=== PATIENT | female | born 1945 | race Caucasian/White ===

== ENCOUNTER 2017-06-29 15:17 | Inpatient (IN) | payer MEDICARE, OTHER ==
[~2017-06-29] VITALS: Ht 160 cm; Wt 68.0 kg
[2017-06-29] MEDS ORDERED: VALIUM PO (15:40)
[2017-06-29 16:10] LABS: BASOPHILS # (AUTO) 0.1 K/uL (0.0-8.0); BASOPHILS % (AUTO) 1.2 % (0.0-2.0); EOSINOPHILS # (AUTO) 0.3 K/uL (0.0-0.7); EOSINOPHILS % (AUTO) 3.1 % (0.0-7.0); HEMATOCRIT 27.7 % (37-47); HEMOGLOBIN 9.1 G/DL (12.0-16.0); LYMPHOCYTES # (AUTO) 1.6 K/UL (0.8-4.8); LYMPHOCYTES % (AUTO) 17.2 % (20.5-51.5); MEAN CORPUSCULAR HEMOGLOBIN 32.5 UUG (27.0-31.0); MEAN CORPUSCULAR HGB CONC 33 g/dL (32.0-37.0); MEAN CORPUSCULAR VOLUME 99.1 FL (81.0-99.0); MONOCYTES # (AUTO) 1.2 K/UL (0.1-1.30); MONOCYTES % (AUTO) 12.7 % (0.0-11.0); NEUTROPHILS # (AUTO) 6.2 K/UL (1.8-8.9); NEUTROPHILS % (AUTO) 65.8 % (38.5-71.5); PLATELET COUNT (AUTO) 564 K/UL (150-450); RED BLOOD CELL COUNT(AUTO) 2.79 MIL/UL (4.2-5.4); WHITE BLOOD COUNT (AUTO) 9.4 K/UL (4.0-11.2)
[2017-06-29 16:12] LABS: CARBON DIOXIDE 30 mmol/L (21-32); CHLORIDE 105 mmol/L (98-107); CREATININE 0.7 mg/dL (0.6-1.3); GLUCOSE 110 mg/dL (74-106); POTASSIUM 4.1 mmol/L (3.5-5.1); UREA NITROGEN, BLOOD 19 mg/dL (7-18)
--- NOTE | 2017-06-29 16:16 | NUR ---
PT IS IN ROOM #2B. DR HEARN EVALUATED THE PT.
[2017-06-29 16:18] LABS: ALANINE AMINOTRANSFERASE 18 U/L (14-59); ALKALINE PHOSPHATASE 120 U/L (50-136); ASPARTATE AMINOTRANSFERASE 13 U/L (15-37); BILIRUBIN,TOTAL 0.3 mg/dL (0.2-1.0); TOTAL PROTEIN, SERUM 6.6 g/dL (6.4-8.2)
[2017-06-29 16:25] LABS: ETHANOL < 3 MG/DL (0-0)
[2017-06-29 17:43] LABS: ACETAMINOPHEN < 2.0 ug/mL (10-30)
[2017-06-29] MEDS ORDERED: LORAZEPAM 0.5 MG TABLET PO ONE (17:45)
[2017-06-29] MEDS ORDERED: LORAZEPAM 1 MG TABLET ONE (18:02)
[2017-06-29] MEDS ORDERED: CALC-494 PO (18:08)
[2017-06-29] MEDS ORDERED: FISH1CAP16 PO (18:08)
[2017-06-29] MEDS ORDERED: DIAZ5TAB PO (18:08)
[2017-06-29] MEDS ORDERED: MULT1TAB11 PO (18:08)
[2017-06-29] MEDS ORDERED: LISI10TA5 PO (18:08)
[2017-06-29] MEDS ORDERED: NA P133E RC (18:08)
[2017-06-29] MEDS ORDERED: HYDR-3026 PO (18:08)
[2017-06-29] MEDS ORDERED: MAGN400O6 PO ×2 (18:08)
[2017-06-29] MEDS ORDERED: TRAZ-147 PO (18:08)
[2017-06-29] MEDS ORDERED: CLOB15CR4 TP (18:08)
[2017-06-29] MEDS ORDERED: HYDR12.5 PO (18:08)
[2017-06-29] MEDS ORDERED: BENZ0.5T3 PO (18:08)
[2017-06-29] MEDS ORDERED: ZOLP5TAB2 PO (18:08)
[2017-06-29] MEDS ORDERED: LORA-259 PO (18:08)
[2017-06-29] MEDS ORDERED: CLON1TAB4 PO ×2 (18:08)
[2017-06-29] MEDS ORDERED: QUET50TA PO (18:08)
[2017-06-29] MEDS ORDERED: CIPR-262 PO (18:08)
[2017-06-29] MEDS ORDERED: GUAI-671 PO (18:08)
[2017-06-29] MEDS ORDERED: CHOL200026 PO (18:08)
[2017-06-29] MEDS ORDERED: MENT71OI TP (18:08)
[2017-06-29] MEDS ORDERED: POLY17PO4 PO (18:08)
[2017-06-29] MEDS ORDERED: ACET325T53 PO (18:08)
[2017-06-29] MEDS ORDERED: OMEP20TA5 PO (18:08)
[2017-06-29] MEDS ORDERED: FEXO180T94 PO (18:08)
[2017-06-29] MEDS ORDERED: BISA10SU8 RC (18:08)
[2017-06-29] MEDS ORDERED: OLANZAPINE 10 MG VIAL IM ONE ×2 (18:30→18:50)
--- NOTE | 2017-06-29 18:44 | NUR ---
JORGE FROM PSYCH INTAKE DISCUSSED PT'S ADMISSION WITH PT'S RELATIVES. ACCORDING TO JORGE PT IS GOING TO BE D/C TO HOME AFTER PSYCH MEDICATION ADMINISTRATION. PT'S SON TALKED TO JORGE. PT WAS MEDICATED ACCORDING TO DR HEARN ORDERS.
[2017-06-29] MEDS ORDERED: LORAZEPAM 2 MG/1 ML VIAL IV ONE ×2 (19:00→21:30)
[2017-06-29] MEDS ORDERED: PANTOPRAZOLE SODIUM 40 MG VIAL IV ONE (19:00)
[2017-06-29] MEDS ORDERED: LORAZEPAM 2 MG/1 ML VIAL ONE ×2 (19:16→21:42)
--- NOTE | 2017-06-29 19:30 | NUR ---
Received report from [facility]. Assumed care of pt at this time. Pt resting on her side with a rocking motion. Pt placed on monitor, NSR. Resp even and unlabored. Family at bedside.
[2017-06-29] MEDS ORDERED: PANTOPRAZOLE SODIUM 40 MG VIAL ONE (19:43)
--- NOTE | 2017-06-29 20:15 | NUR ---
Pt resting in position of comfort for self. Resp even and unlabored. No obvious signs of distress.
[2017-06-29 21:23] LABS: *BILIRUBIN,URIN NEGATIVE (NEGATIVE); *BLOOD, URINE NEGATIVE (NEGATIVE); *CLARITY,URINE CLEAR (CLEAR); *COLOR,URINE YELLOW (YELLOW); *KETONES,URINE NEGATIVE (NEGATIVE); *PROTEIN,URINE NEGATIVE (NEGATIVE); *UROBILINOGEN,URINE 0.2 E.U./dl (NORMAL); LEUKOCYTE ESTERASE ,URINE NEGATIVE (NEGATIVE); NITRITE, URINE NEGATIVE (NEGATIVE); UGLUCOSE NEGATIVE (NEGATIVE)
[2017-06-29] MEDS ORDERED: CEFTRIAXONE 1 G in IV DEXTROSE 5% 50 ML IV ONE (21:30)
--- NOTE | 2017-06-29 21:35 | NUR ---
Straight cath obtained. Pt became more awake and restless, almost crawling out of bed. Dr. Dangelo notified and pt medicated, will monitor for effects of medication. Family remains at bedside.
[2017-06-29 21:36] LABS: *AMPHETAMINE, URINE NEGATIVE (NEGATIVE); *BARBITURATE, URINE NEGATIVE (NEGATIVE); *CANNABINOID, URINE NEGATIVE (NEGATIVE); *COCCAINE, URINE NEGATIVE (NEGATIVE); *OPIATE, URINE NEGATIVE (NEGATIVE); *PHENCYCLIDINE SCREEN,URINE NEGATIVE (NEGATIVE)
[2017-06-29 21:40] LABS: MUCUS,URINE MODERATE /LPF (0-FEW); SQUAMOUS EPITHELIAL CELL,UR FEW /HPF (NONE SEEN); WBC,URINE 0-3 /HPF (0-3)
[2017-06-29] MEDS ORDERED: CEFTRIAXONE 1 G VIAL ONE (21:42)
--- NOTE | 2017-06-29 22:02 | NUR ---
Report called to [facility]. Preparing to transfer pt to the floor.
--- NOTE | 2017-06-29 22:04 | NUR ---
Ed (pt's son and DPOA) sts he would rather have sedated than in restraints. If it comes between the two he would rather have her sedated before it gets to the point of need restraints. [phone] CALL THIS NUMBER FIRST (daughter in law Cassidy) [phone] 2nd number to call ( son's cell phone)
--- NOTE | 2017-06-29 22:35 | NUR ---
PT RECEIVED FROM ED VIA [facility]. A/OX2, CONFUSED AND IN NEED OF REORIENTATION. V/S STABLE. IN NO ACUTE DISTRESS. NO C/O PAIN AT THIS TIME. IV INTACT AND PATENT. 70 SIMUS RHYTHM ON THE TELE MONITOR. SAFETY MEASURES IMPLEMENTED. CALL LIGHT WITHIN REACH.
[2017-06-29] MEDS ORDERED: IV NS 1000 ML 1,000 ML IV PRN (23:55)
[2017-06-30] VITALS: BP 116/43
[2017-06-30] MEDS ORDERED: FLEET ENEMA 133 ML BOTTLE RC PRN
[2017-06-30] MEDS ORDERED: ENOXAPARIN SODIUM 40 MG/0.4 ML DISP.SYRIN SQ SCH
[2017-06-30] MEDS ORDERED: ONDANSETRON 4 MG/2 ML VIAL IV PRN
[2017-06-30] MEDS ORDERED: BISACODYL 10 MG SUPP.RECT RC PRN
[2017-06-30] MEDS ORDERED: CLOBETASOL PROPIONATE 0.05% CREAM 15 GM TUBE TP PRN
[2017-06-30] MEDS: BENZTROPINE MESYLATE 0.5 MG TABLET PO SCH ×5 (00:58→23:27)
[2017-06-30] MEDS ORDERED: BENZTROPINE MESYLATE 0.5 MG TABLET ONE (01:01)
[2017-06-30] MEDS ORDERED: ENOXAPARIN SODIUM 40 MG/0.4 ML DISP.SYRIN SQ ONE (01:01)
[2017-06-30 04:00] VITALS: BP 128/43
[2017-06-30] MEDS ORDERED: LORAZEPAM 2 MG/1 ML VIAL ONE (04:54)
--- NOTE | 2017-06-30 05:15 | NUR ---
NON-ADMIN 1MG ATIVAN IV. PT NO LONGER AGITATED AND FLAILING ARMS. PT IS ASLEEP. 1MG ATIVAN IV WASTED. WILL CONT TO MONITOR
--- NOTE | 2017-06-30 06:00 | NUR ---
NON-ADMIN PROTONIX. PT IS A NEW ADMISSION.
--- NOTE | 2017-06-30 06:00 | NUR ---
END OF SHIFT NOTES. PT SLEPT WELL THROUGHOUT SHIFT. IN STABLE CONDITION. IVF INFUSING. SINUS PAULINE AT 57 ON THE TELE MONITOR. ALL NEEDS ATTENDED. SAFETY MAINTAINED. CALL LIGHT WITHIN REACH.
[2017-06-30] MEDS: PANTOPRAZOLE SODIUM 40 MG TABLET.DR PO SCH ×2 (06:01→08:20)
[2017-06-30] MEDS: LORAZEPAM 1 MG TABLET PO PRN ×2 (07:34→14:58)
[2017-06-30] MEDS: QUETIAPINE FUMARATE 25 MG TABLET PO SCH ×2 (08:20→13:30)
[2017-06-30] MEDS: DIAZEPAM 5 MG TABLET PO SCH ×2 (08:20→16:14)
[2017-06-30] MEDS: HYDROCHLOROTHIAZIDE 12.5 MG CAPSULE PO SCH (08:21)
[2017-06-30] MEDS: LISINOPRIL 10 MG TABLET PO SCH (08:21)
[2017-06-30] MEDS: MIRALAX 17 GM POWD.PACK PO SCH (08:23)
[2017-06-30 08:24] LABS: BASOPHILS # (AUTO) 0.1 K/uL (0.0-8.0); BASOPHILS % (AUTO) 0.9 % (0.0-2.0); EOSINOPHILS # (AUTO) 0.3 K/uL (0.0-0.7); EOSINOPHILS % (AUTO) 3.6 % (0.0-7.0); HEMATOCRIT 26.5 % (37-47); HEMOGLOBIN 8.9 G/DL (12.0-16.0); LYMPHOCYTES # (AUTO) 1.3 K/UL (0.8-4.8); LYMPHOCYTES % (AUTO) 16.8 % (20.5-51.5); MEAN CORPUSCULAR HEMOGLOBIN 33.1 UUG (27.0-31.0); MEAN CORPUSCULAR HGB CONC 34 g/dL (32.0-37.0); MEAN CORPUSCULAR VOLUME 98.1 FL (81.0-99.0); NEUTROPHILS # (AUTO) 4.8 K/UL (1.8-8.9); NEUTROPHILS % (AUTO) 64.7 % (38.5-71.5); PLATELET COUNT (AUTO) 534 K/UL (150-450); WHITE BLOOD COUNT (AUTO) 7.4 K/UL (4.0-11.2)
[2017-06-30] MEDS: CLONAZEPAM 1 MG TABLET PO SCH ×3 (08:27→22:23)
[2017-06-30 09:53] LABS: CARBON DIOXIDE 29 mmol/L (21-32); CHLORIDE 107 mmol/L (98-107); CHOLESTEROL 172 mg/dL (<200); CREATININE 0.6 mg/dL (0.6-1.3); GLUCOSE 95 mg/dL (74-106); HDL CHOLESTEROL 54 mg/dL (40-60); MAGNESIUM 1.9 mg/dL (1.8-2.4); PHOSPHOROUS 3.6 mg/dL (2.5-4.9); POTASSIUM 3.9 mmol/L (3.5-5.1); TRIGLYCERIDES 67 MG/DL (30-150); UREA NITROGEN, BLOOD 16 mg/dL (7-18)
--- NOTE | 2017-06-30 10:00 | NUR ---
PATIENT IS AGITATED RESTLESS TRASHING SELF ON THE LAURYN CHAIR VERBALLY RESPONSIVE BUT SPEECH IS INCOHERENT AND GARBLED ALL NEEDS ANTICIPATED AND SATISFIED.
[2017-06-30] MEDS ORDERED: OLANZAPINE 10 MG VIAL IM STA (13:16)
--- NOTE | 2017-06-30 13:30 | NUR ---
NEW ORDER NOTED FOR ZYPREXA PATIENT IS VERY AGITATED RESTLESS TRASHING SELF ON THE CHAIR SWINGING ARMS AND SCRATCHING AND AGGRESSIVE MEDICATIONS ADMINISTERED AT THIS TIME AND WILL CONTINUE TO OBSERVE
--- NOTE | 2017-06-30 13:40 | NUR ---
DR MARIE HERE TO SEE PATIENT WITH NO NEW ORDER AT THIS TIME.PATIENTS SON IS HERE AND THE DOCTOR SPOKE WITH THE SON AT LENGTH RE DISEASE PROCESS AND THE PLAN OF CARE.
--- NOTE | 2017-06-30 14:00 | NUR ---
IV FLUIDS HAS BEEN ON HOLD DUE TO THE FACT THAT PATIENT IS SO AGGRESSIVE PULLING ON THE TUBBING AND POLE AND AT RISK OF TIPPING OVER THE METAL POLE AND GETTING HURT DR TEMO SHAFFER AWARE THAT THE IVF HAS BEEN ON HOLD WITH NO NEW ORDERS AT THIS TIME.
[2017-06-30] MEDS: ACETAMINOPHEN 325 MG TABLET PO PRN (14:59)
--- NOTE | 2017-06-30 15:00 | NUR ---
PATIENT PLACED INTO BED WITH MUCH DIFFICULTY SECONDARY TO PATIENT IS VERY UNCOOPERATIVE AND SWINGING AT US WHILE WE ARE TRANSFERING HER INTO BED.
--- NOTE | 2017-06-30 15:15 | NUR ---
PATIENT SEEN AND EXAMINED BY DR ZAMARRIPA BORING MILL OPERATOR WITH ORDER TO DISCONTINUE TELEMETRY.
--- NOTE | 2017-06-30 17:30 | NUR ---
PATIENT IS VERY AGITATED AND RESTLESS TRASHING SELF IN BED SCRATCHED THIS WRITTER ON THE ARM WHEN I TRIED TO ASSIST HER PILLOWS PLACED IN HER BED TO PROTECT HER FROM HARMING HERSELF.REMAIN ON ONE ON ONE SITTER FOR SAFETY.
--- NOTE | 2017-06-30 18:00 | NUR ---
MESSAGE SENT TO DR TEMO SHAFFER RE PATIENT REQUIRES MORE CHEMICAL RESTRAINTS TO BE GIVEN NEEDED AWAITING FOR RETURN CALL.
--- NOTE | 2017-06-30 19:30 | NUR ---
NSG: RESTART IVF AFTER 5 MINUTES PATIENT START PULLING ON TUBBING AND POLE. IV FLUIDS PLACED ON HOLD FOR SAFETY.DUE TO PATIENT IS SO AGGRESSIVE AT RISK OF TIPPING OVER THE METAL POLE.CONTINUE MONITORING FOR SAFETY.
--- NOTE | 2017-06-30 20:00 | NUR ---
NSG: RECEIVED PATIENT LAYING IN BED.OCC GETS AGITATED AND RESTLESS.VERBALLY RESPONSIVE BUT SPEECH IS INCOHERENT AND GARBLED ALL NEEDS ANTICIPATED AND SATISFIED. TALKING TO HER SELF. ON 1:1 SITTER @ BED SIDE FOR SAFETY.
[2017-06-30] MEDS: TRAZODONE 100 MG TABLET PO SCH (20:27)
[2017-06-30] MEDS: ENOXAPARIN SODIUM 40 MG/0.4 ML DISP.SYRIN SQ SCH (20:28)
[2017-06-30 20:30] VITALS: BP 118/58
[2017-06-30] MEDS: DIVALPROEX 250 MG TABLET.DR PO SCH (20:57)
[2017-06-30] MEDS ORDERED: OLANZAPINE ZYDIS 5 MG TAB.RAPDIS PO SCH ×2 (21:00)
[2017-06-30] MEDS: CEFTRIAXONE 1 G in IV DEXTROSE 5% 50 ML IV SCH ×3 (23:25)
--- NOTE | 2017-07-01 00:12 | NUR ---
NSG: PATIENT RESTING EYES CLOSE. NO AGITATION NOTED THIS TIME.CONTINUE MONITORING FOR SAFETY VIA 1:1 SITTER @ BEDSIDE.
[2017-07-01] MEDS: ACETAMINOPHEN 325 MG TABLET PO PRN ×2 (02:43→11:25)
--- NOTE | 2017-07-01 02:43 | NUR ---
NSG: PATIENT C/O GEN: PAIN. TYLENOL 350 MG PO GIVEN.
[2017-07-01] MEDS: LORAZEPAM 1 MG TABLET PO PRN ×2 (02:44→09:05)
--- NOTE | 2017-07-01 02:45 | NUR ---
NSG: PATIENT C/O ANXIETY, ATIVAN 1 MG PO GIVEN PER PATIENT REQUEST.
[2017-07-01] MEDS: hydrOXYzine HCL 25 MG TABLET PO PRN ×2 (02:48→23:09)
--- NOTE | 2017-07-01 02:48 | NUR ---
NSG: PATIENT IS ITCHING ALL OVER THE UPPER EXTS. ATRAX 25 MG PO GIVEN PER PATIENT REQUEST.
--- NOTE | 2017-07-01 03:45 | NUR ---
NSG: PATIENT STATED I AM FEELING BETTER NOW. PRN EFFECTIVE FOR PAIN.
--- NOTE | 2017-07-01 03:46 | NUR ---
NSG: PATIENT IS CALM NOW. RESTING IN BED QUIETLY. PRN EFFECTIVE FOR AGITATION.
--- NOTE | 2017-07-01 03:50 | NUR ---
NSG: PATIENT STATED I HAVE NO MORE ITCHING. PRN FOR ITCHING IS EFFECTIVE.
--- NOTE | 2017-07-01 06:00 | NUR ---
NSG: UNABLE TO CHECK MORNING BLOOD PRESSURE DUE TO PATIENT AGITATION.CHARGE NURSE MADE AWARE.
[2017-07-01] MEDS: CLONAZEPAM 1 MG TABLET PO SCH ×3 (06:11→23:09)
[2017-07-01] MEDS: BENZTROPINE MESYLATE 0.5 MG TABLET PO SCH ×3 (06:12→18:22)
--- NOTE | 2017-07-01 06:28 | NUR ---
NSG: PATIENT IS UNCOOPERATIVE WITH CARE. COMPLIANT WITH PO MEDS. PRN GIVEN FOR AGITATION ,PAIN AND ITCHING.CHARGE NURSE AWARE OF PATIENT AGITATION AND PATIENT IS DANGER TO OTHERS. ASSISTED WITH ADL'S. IV FLUIDS PLACED ON HOLD NOW DUE TO PATIENT SO AGGRESSIVE PULLING ON THE TUBBING AND POLE AND AT RISK OF TIPPING OVER THE METAL POLE AND GETTING HURT. KEPT IVF ON WHEN PATIENT IS SLEEPING. CONTINUE ON 1:1 SITTER @ BEDSIDE FOR SAFETY ALL THE TIME.
--- NOTE | 2017-07-01 07:10 | NUR ---
RECEIVED REPORT FROM ANIMAL GENETICIST NURSE, PATIENT IN BED SLEEPING, NO EVIDENCE OF DISTRESS AT THIS TIME NOTED, BED IN LOW POSITION, SIDE RAILS UP, SITTER AT BEDSIDE.
[2017-07-01] MEDS: HYDROCHLOROTHIAZIDE 12.5 MG CAPSULE PO SCH (09:00)
[2017-07-01] MEDS: MIRALAX 17 GM POWD.PACK PO SCH (09:00)
[2017-07-01] MEDS: LISINOPRIL 10 MG TABLET PO SCH (09:00)
[2017-07-01] MEDS: DIAZEPAM 5 MG TABLET PO SCH ×2 (09:08→17:02)
[2017-07-01] MEDS: DIVALPROEX 250 MG TABLET.DR PO SCH ×3 (09:08→17:02)
--- NOTE | 2017-07-01 09:10 | NUR ---
patient was extremely agitated and thrashing around in her bed wanting to get out. She got to the edge of the bed with her legs hanging out, with four person assist the patient was transferred to a gerichair for breakfast. Patient experienced two skin tears on legs from trying to climb out.
--- NOTE | 2017-07-01 10:00 | NUR ---
Patient was transferred back to bed as she requested. Patient calmed down and started to become more cooperative with care.
[2017-07-01 10:15] VITALS: BP 99/38
[2017-07-01] MEDS ORDERED: OLANZAPINE 10 MG VIAL IM ONE (13:30)
[2017-07-01 15:48] VITALS: BP 125/42
--- NOTE | 2017-07-01 18:56 | NUR ---
patients mood has mildly improved, patient is following direction and taking medications. Patient ate all of her dinner and is exhibiting more of a mild manner. No evidence of distress noted, patient is in bed, sitter at bedside.
[2017-07-01 20:00] VITALS: BP 96/51
[2017-07-01] MEDS: TRAZODONE 100 MG TABLET PO SCH (20:29)
[2017-07-01] MEDS: ENOXAPARIN SODIUM 40 MG/0.4 ML DISP.SYRIN SQ SCH (20:40)
[2017-07-01] MEDS ORDERED: OLANZAPINE ZYDIS 5 MG TAB.RAPDIS PO SCH (21:00)
[2017-07-02] MEDS: CEFTRIAXONE 1 G in IV DEXTROSE 5% 50 ML IV SCH (00:24)
[2017-07-02] MEDS: BENZTROPINE MESYLATE 0.5 MG TABLET PO SCH ×4 (00:25→18:00)
[2017-07-02] MEDS: LORAZEPAM 1 MG TABLET PO PRN ×2 (00:36→14:15)
[2017-07-02 04:00] VITALS: BP 101/63
[2017-07-02] MEDS: PANTOPRAZOLE SODIUM 40 MG TABLET.DR PO SCH (06:44)
[2017-07-02] MEDS: CLONAZEPAM 1 MG TABLET PO SCH ×2 (06:45→13:22)
[2017-07-02] MEDS: DIVALPROEX 250 MG TABLET.DR PO SCH ×3 (08:12→16:10)
[2017-07-02] MEDS: DIAZEPAM 5 MG TABLET PO SCH ×2 (08:12→16:10)
[2017-07-02] MEDS: MIRALAX 17 GM POWD.PACK PO SCH (08:12)
[2017-07-02] MEDS: HYDROCHLOROTHIAZIDE 12.5 MG CAPSULE PO SCH (08:44)
[2017-07-02] MEDS: LISINOPRIL 10 MG TABLET PO SCH (08:44)
[2017-07-02] MEDS ORDERED: OLANZAPINE ZYDIS 5 MG TAB.RAPDIS PO SCH (09:00)
[2017-07-02 10:48] LABS: BASOPHILS # (AUTO) 0.1 K/uL (0.0-8.0); BASOPHILS % (AUTO) 1.1 % (0.0-2.0); EOSINOPHILS # (AUTO) 0.1 K/uL (0.0-0.7); EOSINOPHILS % (AUTO) 1.5 % (0.0-7.0); HEMATOCRIT 24.7 % (37-47); HEMOGLOBIN 8.4 G/DL (12.0-16.0); LYMPHOCYTES # (AUTO) 1.5 K/UL (0.8-4.8); LYMPHOCYTES % (AUTO) 16.3 % (20.5-51.5); MEAN CORPUSCULAR HEMOGLOBIN 32.8 UUG (27.0-31.0); MEAN CORPUSCULAR HGB CONC 34 g/dL (32.0-37.0); MONOCYTES # (AUTO) 0.9 K/UL (0.1-1.30); MONOCYTES % (AUTO) 10.5 % (0.0-11.0); NEUTROPHILS # (AUTO) 6.3 K/UL (1.8-8.9); NEUTROPHILS % (AUTO) 70.6 % (38.5-71.5); PLATELET COUNT (AUTO) 548 K/UL (150-450); RED BLOOD CELL COUNT(AUTO) 2.55 MIL/UL (4.2-5.4); WHITE BLOOD COUNT (AUTO) 8.9 K/UL (4.0-11.2)
[2017-07-02 10:58] LABS: CARBON DIOXIDE 28 mmol/L (21-32); CHLORIDE 107 mmol/L (98-107); CREATININE 0.7 mg/dL (0.6-1.3); GLUCOSE 105 mg/dL (74-106); MAGNESIUM 1.9 mg/dL (1.8-2.4); POTASSIUM 3.6 mmol/L (3.5-5.1); UREA NITROGEN, BLOOD 22 mg/dL (7-18)
[2017-07-02] MEDS ORDERED: OLAN5TAB6 PO (11:23)
[2017-07-02] MEDS ORDERED: OLAN10TA6 PO (11:23)
[2017-07-02] MEDS ORDERED: DIVA250T4 PO (11:23)
[2017-07-02] MEDS ORDERED: LEVO250C PO (11:23)
[2017-07-02 11:47] VITALS: BP 120/72
--- NOTE | 2017-07-02 15:27 | NUR ---
pt absolutely refused for the nurse to take pictures.
[2017-07-02 15:28] VITALS: BP 128/100
--- NOTE | 2017-07-02 15:28 | NUR ---
wounds are open to air, kept clean
--- NOTE | 2017-07-02 17:00 | NUR ---
pt left via private car with her son. Pt's VS WNL. No pain noted. Pt refused for the nurse to take pictures, pt is wheelchaired down, IV and wristband removed. Wound care is done.
== END 2017-07-02 17:00 | disposition home or self-care (01) | DRG 57 ==
LOC: ER 15:18 → TELE 22:03 → MED 06-30 15:32
PROVIDERS: ADMIT Nurse Practitioner Acute Care; ATTEND Nurse Practitioner Acute Care
DX: G10 Huntington's disease (principal); D63.8 Anemia in other chronic diseases classified elsewhere; Z79.899 Other long term (current) drug therapy; Z87.440 Personal history of urinary (tract) infections; F29 Unspecified psychosis not due to a substance or known physiological condition
CPT/HCPCS: 36415; 71010; 80307; 83735; 84100; 85025; 86850; 86900; 86901; 87086; 93005; A4663; C9113; G0480; G0480-TC; J0696; J1650; J2060; J2358; J3490; J7030; J7060